=== PATIENT | male | born 1950 | race Caucasian/White ===

== ENCOUNTER 2016-12-25 16:46 | Inpatient (IN) | payer OTHER ==
[~2016-12-25] VITALS: Ht 170.2 cm; Wt 67.5 kg
[~2016-12-25 16:46] MED LIST: ACET-2158 PO; ALBU18HF IH; BUDE6HFA IH; COU1 PO; LOSA25TA5 PO
[2016-12-25] MEDS ORDERED: CLINDAMYCIN 900 MG/D5W (PMX) 50 ML IVPB STA (21:44)
[2016-12-25] MEDS ORDERED: APIX5TAB PO (21:56)
[2016-12-25] MEDS ORDERED: FURO20TA3 PO (21:57)
[2016-12-25] MEDS ORDERED: BUDE6HFA INHALATION (21:57)
[2016-12-25] MEDS ORDERED: FOLI-49 PO (21:58)
[2016-12-25] MEDS ORDERED: FENO145T19 PO (21:58)
[2016-12-25] MEDS ORDERED: HYDR-906 PO (21:59)
[2016-12-25] MEDS ORDERED: HYDR4TAB PO (21:59)
[2016-12-25] MEDS ORDERED: ALBU18HF INHALATION (22:00)
[2016-12-25 22:54] LABS: ADD SCAN DIFF NO
--- NOTE | 2016-12-25 22:54 | RADRPT ---
PROCEDURE: X-ray right foot CLINICAL INDICATION: Right foot infection. Reference marker is directed towards the medial base o f the right fifth toe TECHNIQUE: 3 views right foot COMPARISON: None FINDINGS: No acute fracture or dislocation. No plain film evidence of osteomyelitis. Soft tissues unremarkab le. IMPRESSION: No acute process identified. RPTAT: [facility] Physician Garret Date Time Electronically viewed and signed by Amarilys Pavon Physician on 12/25/2016 22:53 RS/
[2016-12-25 22:55] LABS: BASOPHIL # 0.1 10^3/ul (0.0-0.1); BASOPHILS % 0.8 % (0.0-2.0); EOSINOPHILS # 0.9 10^3/ul (0.0-0.5); EOSINOPHILS % 11.5 % (0.0-7.0); HEMOGLOBIN 14.5 g/dl (14.0-18.0); LYMPHOCYTES # 1.9 10^3/ul (0.8-2.9); LYMPHOCYTES % 24.5 % (15.0-51.0); MEAN CORPUSCULAR HEMOGLOBIN 33.4 pg (29.0-33.0); MEAN CORPUSCULAR HGB CONC 33.7 g/dl (32.0-37.0); MEAN CORPUSCULAR VOLUME 99.1 fl (82.0-101.0); MEAN PLATELET VOLUME 10.9 fl (7.4-10.4); MONOCYTE # 0.7 10^3/ul (0.3-0.9); MONOCYTES % 8.5 % (0.0-11.0); NEUTROPHIL # 4.1 10^3/ul (1.6-7.5); PLATELET COUNT 288 10^3/UL (140-415); RED BLOOD COUNT 4.34 10^6/ul (4.70-6.10); RED CELL DISTRIBUTION WIDTH 13.8 % (11.5-14.5); WHITE BLOOD COUNT 7.6 10^3/ul (4.8-10.8)
[2016-12-25] MEDS ORDERED: VANCOMYCIN 1 GM (PMX) 250 ML IVPB SCH (23:00)
[2016-12-25] MEDS ORDERED: DIPHENHYDRAMINE 50 MG INJ ONE (23:16)
[2016-12-25 23:20] LABS: CALCIUM 10.3 mg/dl (8.4-10.2); CREATININE 0.95 mg/dl (0.61-1.24); POTASSIUM 4.3 mmol/L (3.5-5.1)
[2016-12-25] MEDS ORDERED: DIPHENHYDRAMINE 50 MG INJ IV ONE (23:30)
[2016-12-25] MEDS ORDERED: ONDANSETRON 4 MG INJ IV PRN (23:30)
[2016-12-25] MEDS ORDERED: ACETAMINOPHEN 325 MG TAB PO PRN (23:30)
--- NOTE | 2016-12-25 23:44 | ERA ---
ER Documentation Chief Complaint Date/Time DATE: 12/25/16 TIME: 23:41 Chief Complaint RIGHT LEG POSSIBLE CELLULITIS, REDNESS NOTED, REPORTED CLOT A MOS AGO HPI 66-year-old diabetic male presenting with right foot infection. His symptoms started about 3 days ago. He was seen at an urgent care and placed on Keflex. He took about 5 doses of the Keflex when he developed a rash and itching. He was advised by the pharmacist to stop taking the medications. He did not notice any improvement of his symptoms. He went to his doctor today who sent him to the ER for evaluation. Denies any associated fevers or chills recently, however he had a low-grade fever 3 days ago of 100.2. Other than some pain in his foot, he has no other complaints. ROS All systems reviewed and are negative except as per history of present illness. Medications Home Meds Reported Medications Albuterol Sulfate* (Ventolin HFA*) 18 Gm Hfa.aer.ad, 2 PUFF INHALATION Q4H, #1 INHALER 12/25/16 Hydrocodone/Acetaminophen (Machipongo 5-325 Tablet) 1 Each Tablet, 1 EACH PO Q6H, TAB 12/25/16 Hydromorphone Hcl* (Hydromorphone Hcl*) 4 Mg Tablet, 4 MG PO TID Y for PAIN, TAB 12/25/16 Folic Acid* (Folic Acid*) 1 Mg Tablet, 1 MG PO DAILY, TAB 12/25/16 Fenofibrate Nanocrystallized* (Fenofibrate*) 145 Mg Tablet, 145 MG PO DAILY, TAB 12/25/16 Furosemide* (Furosemide*) 20 Mg Tablet, 20 MG PO DAILY, #60 TAB 12/25/16 Budesonide-Formoterol Fumarate* (Symbicort*) 160-4.5 Hfa.aer.ad, 2 PUFF INHALATION BID, #1 EACH 12/25/16 Apixaban* (Eliquis*) 5 Mg Tablet, 5 MG PO BID, TAB 12/25/16 Discontinued Reported Medications Warfarin Sod (Coumadin) 1 Mg Tablet, 1.5 MG PO DAILY, TAB 07/29/14 Albuterol Sulfate* (Ventolin HFA*) 18 Gm Hfa.aer.ad, 2 PUFF IH Q4H Y for WHEEZING AND RESP DISTRESS, EA 07/29/14 Losartan Potassium* (Losartan Potassium*) 25 Mg Tablet, 25 MG PO DAILY, TAB 07/29/14 Budesonide-Formoterol Fumarate* (Symbicort*) 160-4.5 Hfa.aer.ad, 2 PUFF IH BID, INH 04/30/14 Discontinued Scripts Acetaminophen (TYLENOL 325 MG TAB) 325 Mg Tab, 650 MG PO Q6H Y for PAIN LEVEL 1- 3 OR FEVER, #10 TAB Prov:ENRIQUE COOMBS MD 07/30/14 Allergies Allergies: Coded Allergies: cephalexin (Verified Allergy, Unknown, 12/25/16) PMhx/Soc History of Surgery: Yes (AAA surgery, rectal fistula repair, Rt and Lt inguinal repair) Anesthesia Reaction: No Hx Neurological Disorder: No Hx Respiratory Disorders: Yes (COPD, history of tracheostomy) Hx Cardiac Disorders: Yes (CP arrest x3, RLE DVT) Hx Psychiatric Problems: No Hx Miscellaneous Medical Probl: Yes (Scabies) Hx Alcohol Use: Yes Hx Substance Use: No Hx Tobacco Use: Yes Smoking Status: Current every day smoker FmHx Family History: No diabetes Physical Exam Vitals Vital Signs Date Time Temp Pulse Resp B/P Pulse Ox O2 Delivery O2 Flow Rate FiO2 12/25/16 16:49 98.1 100 18 110/65 99 Physical Exam Const: Well-appearing, no distress, nontoxic Head: Atraumatic Eyes: Normal Conjunctiva ENT: Normal External Ears, Nose and Mouth. Neck: Full range of motion..~ No meningismus. Resp: Clear to auscultation bilaterally Cardio: Regular rate and rhythm, no murmurs Abd: Soft, non tender, non distended. Normal bowel sounds Skin: No petechiae or rashes Back: No midline or flank tenderness Ext: No cyanosis, or edema. Right lower extremity with cellulitis extending from the foot up to the mid ho. There is blistering in between the third and fourth digits. No crepitus. 2+ DP and PT pulses Neur: Awake and alert Psych: Normal Mood and Affect Result Diagram: 12/25/16211412/25/162114 Results 24 hrs Laboratory Tests Test 12/25/16 21:15 White Blood Count 7.610^3/ul Red Blood Count 4.3410^6/ul Hemoglobin 14.5g/dl Hematocrit 43.0% Mean Corpuscular Volume 99.1fl Mean Corpuscular Hemoglobin 33.4pg Mean Corpuscular Hemoglobin Concent 33.7g/dl Red Cell Distribution Width 13.8% Platelet Count 68193^3/UL Mean Platelet Volume 10.9fl Neutrophils % 54.0% Lymphocytes % 24.5% Monocytes % 8.5% Eosinophils % 11.5% Basophils % 0.8% Nucleated Red Blood Cells % 0.0/100WBC Neutrophils # 4.110^3/ul Lymphocytes # 1.910^3/ul Monocytes # 0.710^3/ul Eosinophils # 0.910^3/ul Basophils # 0.110^3/ul Nucleated Red Blood Cells # 0.010^3/ul Sodium Level 140mmol/L Potassium Level 4.3mmol/L Chloride Level 102mmol/L Carbon Dioxide Level 26mmol/L Anion Gap 16 Blood Urea Nitrogen 16mg/dl Creatinine 0.95mg/dl Glucose Level 84mg/dl Calcium Level 10.3mg/dl Current Medications Medications (Trade) Dose Ordered Sig/Lucina Route PRN Reason Start Time Stop Time Status Last Admin Dose Admin Clindamycin HCl/ Dextrose 50 ml @ 50 mls/hr ONCE STAT IVPB 12/25/16 21:44 12/25/16 22:43 DC Vancomycin HCl (Vancocin) 250 ml @ 125 mls/hr ONCE IVPB 12/25/16 23:00 12/26/16 00:59 Ondansetron HCl (Zofran Inj) 4 mg BRIDGE ORDER PRN IV NAUSEA AND/OR VOMITING 12/25/16 23:30 12/26/16 23:29 Acetaminophen (Tylenol Tab) 650 mg ER BRIDGE PRN PO MILD PAIN/FEVER 12/25/16 23:30 12/26/16 23:29 Diphenhydramine HCl (Benadryl) 50 mg STK-MED ONCE .ROUTE 12/25/16 23:16 12/25/16 23:17 DC Diphenhydramine HCl (Benadryl) 25 mg ONCE ONCE IV 12/25/16 23:30 12/25/16 23:31 DC 12/25/16 23:25 Procedures/MDM Labs show no acute abnormality Right foot x-ray is normal Patient is presenting with a right foot cellulitis. He is afebrile and vitals are stable. Labs are drawn. IV clindamycin and vancomycin restarted. I do not suspect necrotizing skin infection at this time. However the patient is not stable for discharge as he is high risk due to his diabetes and will require IV antibiotics until there is some improvement. There is no evidence of sepsis at this time, so cultures were not ordered Accepting Care Team: Current data and ongoing care discussed. Time: Time of admission Primary Provider: Joao Consulting: none Outstanding Data: none Departure Diagnosis: Primary Impression: Diabetic infection of right foot Condition: ARCHIE Thapa MD Dec 25, 2016 23:44
[2016-12-26] MEDS ORDERED: DIPHENHYDRAMINE 50 MG INJ IV ONE (01:30)
[2016-12-26] MEDS ORDERED: SOD CHLORIDE 0.9% 1,000 ML IV ONE (01:30)
--- NOTE | 2016-12-26 01:58 | HP ---
Date/Time of Note Date/Time of Note DATE: 12/26/16 TIME: 01:58 Assessment/Plan VTE Prophylaxis VTE Prophylaxis Intervention: contraindicated Lines/Catheters IV [facility] Saline Lock Assessment/Plan Chief Complaint/Hosp Course Created in error Problems: HPI/ROS Admit Date/Time Admit Date/Time Hx of Present Illness PMH/Family/Social Social History Smoking Status: Current every day smoker Exam/Review of Systems Vital Signs Vitals Vital Signs Date Time Temp Pulse Resp B/P Pulse Ox O2 Delivery O2 Flow Rate FiO2 12/25/16 23:45 66 18 100/71 95 Room Air 12/25/16 16:49 98.1 Labs Result Diagram: 12/25/16211412/25/162114 Medications Medications Current Medications Sodium Chloride (NS) 1,000 ml @ 1,000 mls/hr Q1H ONCE IV Last administered on 12/26/16t 01:24; Admin Dose 1,000 MLS/HR; Start 12/26/16 at 01:30; Stop at 02:29 LIO LOO Dec 26, 2016 01:58 LIO LOO Dec 26, 2016 01:58
[2016-12-26] MEDS ORDERED: BISACODYL (EC) 5 MG TAB PO PRN (02:00)
[2016-12-26] MEDS: ALBUTEROL 18 GM INHALER INH SCH ×6 (02:00→21:37)
[2016-12-26] MEDS ORDERED: morphine 2 MG INJ IV PRN (02:00)
[2016-12-26] MEDS ORDERED: DOCUSATE SODIUM 100 MG CAP PO PRN (02:00)
[2016-12-26] MEDS ORDERED: NACL 0.9% 3 ML SYG IV SCH (02:00)
[2016-12-26] MEDS ORDERED: ONDANSETRON 4 MG INJ IV PRN (02:00)
[2016-12-26 02:30] VITALS: BP 112/67; RESP 17
[2016-12-26 03:01] VITALS: Ht 170.2 cm; Wt 67.5 kg
[2016-12-26] MEDS: FUROSEMIDE 20 MG TAB PO SCH (06:00)
[2016-12-26] MEDS ORDERED: PANTOPRAZOLE 40 MG INJ IV SCH (06:00)
--- NOTE | 2016-12-26 06:45 | HP ---
Date/Time of Note Date/Time of Note DATE: 12/26/16 TIME: 06:35 Assessment/Plan VTE Prophylaxis VTE Prophylaxis Intervention: LMWH Lines/Catheters [facility]from [facility]): Saline Lock Urinary Cath still in place: No Assessment/Plan Chief Complaint/Hosp Course This is a 66-year-old male being admitted to the [facility] floor for: #1 right lower extremity cellulitis: Patient failed outpatient therapy with Keflex. At the current time patient has cellulitis extending from the foot up to the midshin with some warmth redness and edema. With the current time will put patient on IV vancomycin pharmacy to dose. We will also consult wound care and podiatry as patient was appears to have skin lesion/blister/wound. X-ray was unremarkable for any evidence of osteomyelitis. #2 skin rash: Patient appears to have little petechial skin rash of the bilateral lower extremities. Patient states rash occurred after taking Keflex. This likely was a drug reaction. Will continue to monitor. #3 history of DVT: Continue Eliquis #4 COPD continue home inhaler #5 history of AAA repair: Stable continue to monitor #5 dyslipidemia: We will hold fibroids right now. #6 DVT and GI prophylaxis: Lovenox, Protonix. Treatment strategy will be implemented as per the clinical course Problems: HPI/ROS Admit Date/Time Admit Date/Time Hx of Present Illness Chief complaint: right foot infection 66-year-old diabetic male presenting with right foot infection. His symptoms started about 3 days ago. He was seen at an urgent care and placed on Keflex. He took about 5 doses of the Keflex when he developed a rash and itching. He was advised by the pharmacist to stop taking the medications. He did not notice any improvement of his symptoms. He went to his doctor today who sent him to the ER for evaluation. Denies any associated fevers or chills recently, however he had a low-grade fever 3 days ago of 100.2. Other than some pain in his foot, he has no other complaints Medications: See MAR Allergies: Cephalexin ROS Cons: As per HPI Eyes : No pain discharge or redness or change in visual acuity ENT: No pain, sore throat, congestion, congestion, dysphagia or discharge Respiratory: No shortness of breath, cough, sputum, wheezing, or pleuritic pain Cardiovascular: No chest pain, palpitation, PND, or edema GI : no change in appetite, abdominal pain, nausea, vomiting, diarrhea, constipation, or change in the color his stool Genitourinary: No dysuria, hematuria, flank pain , discharge or CVA tenderness Musculoskeletal: As per HPI Skin: As per HPI Neuro: No headache, dizziness, syncope, seizure, focal weakness Endocrine: No polyuria, polydipsia, temperature intolerance Psych: No hallucination, depression, anxiety or suicidal ideation PMH/Family/Social Past Medical History DVT, abdominal aortic aneurysm, COPD, chronic pink otitis Past Surgical History Bilateral inguinal hernia surgery, rectal fistula repair, left wrist surgery, AAA repair Family History Significant Family History: diabetes (Mom) Social History Alcohol Use: other (Last drink 1 month ago social drinker) Smoking Status: Former smoker (2 packs per day 40 years, quit 5 years ago) Exam/Review of Systems Vital Signs Vitals Vital Signs Date Time Temp Pulse Resp B/P Pulse Ox O2 Delivery O2 Flow Rate FiO2 12/26/16 02:30 98.1 62 17 112/67 94 12/26/16 01:57 Room Air Intake and Output 12/25/16 12/25/16 12/26/16 15:00 23:00 07:00 Intake Total 250 ml Output Total 300 ml Balance -50 ml Exam Exam General: Patient is well-developed well-nourished The patient is alert oriented -3 lying comfortably in bed. HEENT: Atraumatic, normocephalic. The pupils are equal, round and reactive. Extraocular motor are intact Neck: Supple with full range of motion. No rigidity or meningismus Chest: Nontender Lungs: Clear to auscultation bilaterally no crackles rales or wheezing Heart: Normal S1-S2, Regular rhythm and rate. No murmur, S3, or S4 Abdomen: Soft , nontender, nondistended , bowel sounds are present. No guarding no rebound tenderness , No masses or organomegaly. No costovertebral temporal angle mass Extremities: Right lower extremity redness warmth and erythema from the foot up to the ho, edema of the right lower extremity 1+, 2+ DP pulses Neurologic: Normal mental status, speech normal, cranial nerves II through XII are intact, motor and sensory are intact, no focal weakness Skin: Right lower extremity erythema redness and warmth extending from the foot all the left position, blisters/open wound of the third and fourth digit. Lines of demarcation drawn with marker Additional Comments PROCEDURE: X-ray right foot CLINICAL INDICATION: Right foot infection. Reference marker is directed towards the medial base of the right fifth toe TECHNIQUE: 3 views right foot COMPARISON: None FINDINGS: No acute fracture or dislocation. No plain film evidence of osteomyelitis. Soft tissues unremarkable. IMPRESSION: No acute process identified. RPTAT: UU Physician Garret Date Time Electronically viewed and signed by Amarilys Pavon Physician on 12/25/2016 22:53 Labs Result Diagram: 12/25/16211412/25/162114 Medications Medications Current Medications Ondansetron HCl (Zofran Inj) 4 mg Q6H PRN IV NAUSEA AND/OR VOMITING; Start at 02:00 Morphine Sulfate (morphine) 2 mg Q4H PRN IV SEVERE PAIN LEVEL 7-10; Start 12/26 at 02:00 Docusate Sodium (Colace) 100 mg Q12H PRN PO CONSTIPATION; Start 12/26/16 at 02: 00 Bisacodyl (Dulcolax) 5 mg DAILY PRN PO CONSTIPATION; Start 12/26/16 at 02:00 Pantoprazole (Protonix Iv) 40 mg DAILY@06 IV Last administered on 12/26/16t 06: 32; Admin Dose 40 MG; Start 12/26/16 at 06:00 Enoxaparin Sodium (Lovenox) 40 mg DAILY SC ; Start 12/26/16 at 09:00 Apixaban (Eliquis) 5 mg BID PO ; Start 12/26/16 at 09:00 Folic Acid (Folic Acid) 1 mg DAILY PO ; Start 12/26/16 at 09:00 Furosemide (Lasix) 20 mg DAILY@06 PO ; Start 12/26/16 at 06:00 Miscellaneous Information 2 puff BID INHALATION ; Start 12/26/16 at 09:00; Status LIO JOSEPH Dec 26, 2016 06:45
[2016-12-26] MEDS ORDERED: VANCOMYCIN IV PER PHARMACY XX SCH (07:00)
[2016-12-26] MEDS ORDERED: SOD CHLORIDE 0.9% 500 ML IV ONE (07:00)
[2016-12-26 07:47] VITALS: BP 104/64; RESP 18
[2016-12-26] MEDS ORDERED: ENOXAPARIN 40 MG/0.4 ML SYG SC SCH (09:00)
[2016-12-26] MEDS: SALMETEROL/FLUTICASONE 250/50 INHA INH SCH ×2 (09:48→21:37)
[2016-12-26] MEDS: FOLIC ACID 1 MG TAB PO SCH (09:49)
[2016-12-26] MEDS: VANCOMYCIN 750 MG in SOD CHLORIDE 0.9% 150 ML IVPB SCH ×2 (09:49→21:38)
[2016-12-26] MEDS: APIXABAN 5 MG TABLET PO SCH ×2 (09:49→21:44)
[2016-12-26 11:45] VITALS: RESP 20
[2016-12-26 12:04] VITALS: PULSE 100; RESP 21
[2016-12-26] MEDS: DIPHENHYDRAMINE 25 MG CAP PO PRN ×2 (13:21→22:00)
[2016-12-26] MEDS: FENOFIBRATE 145 MG TAB PO SCH (13:22)
[2016-12-26] MEDS: PREGABALIN 25 MG CAP PO SCH ×2 (13:22→21:38)
--- NOTE | 2016-12-26 18:00 | CONS ---
DATE OF ADMISSION: 12/25/2016 DATE OF CONSULTATION: 12/26/2016 TYPE OF CONSULTATION: Infectious Disease. REASON FOR CONSULTATION: Antibiotic management. HISTORY OF PRESENT ILLNESS: David Kaba is a 66-year-old male with a history of diabetes who c omes in with right foot infection. His past problems include: 1. Adult-onset diabetes mellitus. 2. History of skin rash. 3. History of deep venous thrombosis on Eliquis. 4. Chronic obstructive pulmonary disease on home inhalers. 5. Status post aortic abdominal aneurysm repair. 6. Dyslipidemia. 7. Right foot infection. As noted, the patient has a right foot infection which started 3 days sandra or to admission. He was given Keflex. He developed a rash and some itching and was advised to stop taking the medication. He went to his doctor and his temperature was 100.2. He came to the emerge ncy room for evaluation. PAST SURGICAL HISTORY: As outlined. He also has bilateral inguinal hernia surgery, surgery for rec ela fistula, left wrist surgery as well as the AAA repair. PAST MEDICAL HISTORY: As outlined. FAMILY HISTORY: Noncontributory. Mother had diabetes. SOCIAL HISTORY: He is a social drinker. He is a former smoker, 2 packs per day for 40 years, quit 5 years ago. PHYSICAL EXAMINATION: GENERAL: The patient is a well-developed, well-nourished male. Alert, responsive, in no acute dist ress. VITAL SIGNS: Stable. He is afebrile. SKIN: Without generalized rash. HEENT: Within normal limits. NECK: Supple. LYMPH NODES: None palpable. CHEST: Decreased breath sounds at the bases. HEART: Without murmur or gallop. ABDOMEN: Soft, nontender, without organosplenomegaly or masses. EXTREMITIES: Without cyanosis or clubbing or edema. The right lower extremity has redness and warm th and erythema from the foot up to the anterior tibial area. His right lower extremity is edematou s. He has good pulses. RECTAL AND GENITAL: Deferred. NEUROLOGIC: No focal neurological abnormalities. ANCILLARY LABORATORY DATA: X-ray of the foot shows right foot shows no acute fractures or dislocati ons. No evidence of osteomyelitis. On admission, his white count is 7.6, H and H 14.5 and 43, plat elet count 288,000. BUN and creatinine 16/0.95, glucose random was 84. Patient was placed on vanco mycin. He had a dose of clindamycin as well. We will continue him on vancomycin for his cellulitis and I will dictate my findings to the hospitalist. Dictated By: JESICA SMALL MD, JD/JUAN DIEGO Conf#: [id number] DID#: [id number]
[2016-12-26] MEDS ORDERED: METHYLPREDNISOLONE 40 MG INJ IV ONE (20:00)
[2016-12-26 21:25] VITALS: BP 90/53; RESP 18
--- NOTE | 2016-12-26 21:25 | CONS ---
DATE OF ADMISSION: 12/25/2016 DATE OF CONSULTATION: 12/26/2016 REASON FOR CONSULTATION: Right foot cellulitis. REFERRING PHYSICIAN: Dr. Jalen Shepherd HISTORY OF PRESENT ILLNESS: This is a 66-year-old gentleman with admission through the emergency room for cellulitis, failed outpatient treatment, had been seen at an urgent care facility and prescribed Keflex. The patient has had increasing swelling, ascending erythema and skin rash since admission. The patient relates an ALLERGY TO CEPHALEXIN. He has had Benadryl and itching persists. Currently on vancomycin and clindamycin. PAST MEDICAL HISTORY: History of DVT, had been on Coumadin, currently on Eliquis for anticoagulation therapy. Abdominal aortic aneurysm, COPD, PAST SURGICAL HISTORY: Bilateral inguinal hernia surgery, rectal fistula repair , left wrist surgery, AAA repair. FAMILY HISTORY: Diabetes in his mother. SOCIAL HISTORY: Social alcohol. Former smoker, 2 packs per day for 40 years, quit 5 years ago. PHYSICAL EXAMINATION: VITAL SIGNS: Temperature 98.7, respiratory 18, blood pressure 104/64. Pulse oximetry 97, room air. GENERAL: The patient alert, oriented. Mild distress from itching. Regular respiration. NECK: Trachea is midline. EXTREMITIES: Multiple petechiae in bilateral lower extremity, legs, thigh. Has erythema to hand. Right foot with pain with palpation, has sanguineous blisters located at the 3rd interspace over the 4th and the 3rd toes. Sensitivity with light touch and unable to flex, extend the toes, has moderate edema of foot and ankle. There are indelible pen markings with receding erythema. No osseous or ligamentous instability of leg, ankle, hindfoot or midfoot. The patient has a 2+ DP, PT pulses, 2+ popliteal pulse. Tinea interdigital between the 3rd and 4th toes. No evidence of puncture or foreign body. IMAGING: X-rays, right foot, 3 views without evidence of fracture, dislocation. No osteomyelitis. LABORATORIES: WBC 7.6, hemoglobin 14.5, hematocrit 43, platelets 288. Sodium 140, potassium 4.3, chloride 102, CO2 26, BUN 16, creatinine 0.95, glucose 84. ASSESSMENT: 1. Right foot, ankle and calf cellulitis. 2. Tinea. 3. Hematoma, right foot 3rd and 4th toes. 4. Cirrhosis. PLAN: The patient seen, evaluated, discussed radiographs. The patient consented for incision and drainage procedure performed at bedside. The toe was cleansed, and using an 11 blade, incision was made of the hematoma to the 4th toe and serosanguineous drainage obtained for culture, to be sent for aerobic, anaerobic cultures. There is macerated tissue between the toes. The patient initiated on Diflucan. Appreciate ID recommendations. The patient currently on empiric therapy with clindamycin and vancomycin. Nursing recommendations given. Daily cleansing with chlorhexidine and application of gentamicin cream. Recommend elevation of extremity, application of ice as needed. Also patient has appearance of some allergy, either from infection or from medication and not relieved with Benadryl. Solu-Medrol 40 mg initiated. Will continue to follow while in-house. Thank you for this consultation. Dictated By: XAVIER CHIU/JUAN DIEGO Conf#: [id number] DID#: [id number] MTDD
[2016-12-26] MEDS: GENTAMICIN 0.1% CREAM 15GM TUBE TOP SCH (21:38)
[2016-12-26] MEDS: FLUOCINONIDE 0.05% 15 GM CR TOP SCH (21:43)
[2016-12-27] MEDS ORDERED: ZOLPIDEM 5 MG TAB PO PRN
[2016-12-27] MEDS: PANTOPRAZOLE (EC) 40 MG TAB PO SCH (05:38)
[2016-12-27] MEDS: FUROSEMIDE 20 MG TAB PO SCH (05:39)
[2016-12-27 05:41] VITALS: BP 106/67; PULSE 61
[2016-12-27 08:00] VITALS: BP 106/64; RESP 19
[2016-12-27 08:28] LABS: ADD SCAN DIFF NO
[2016-12-27 08:36] LABS: BASOPHILS % 0.1 % (0.0-2.0); LYMPHOCYTES # 1.3 10^3/ul (0.8-2.9); LYMPHOCYTES % 17.8 % (15.0-51.0); MEAN CORPUSCULAR HEMOGLOBIN 32.6 pg (29.0-33.0); MEAN CORPUSCULAR HGB CONC 32.6 g/dl (32.0-37.0); MEAN PLATELET VOLUME 10.3 fl (7.4-10.4); MONOCYTE # 0.2 10^3/ul (0.3-0.9); MONOCYTES % 2.6 % (0.0-11.0); NEUTROPHIL # 5.8 10^3/ul (1.6-7.5); NEUTROPHILS % 79.1 % (39.0-77.0); PLATELET COUNT 311 10^3/UL (140-415); RED CELL DISTRIBUTION WIDTH 13.8 % (11.5-14.5); WHITE BLOOD COUNT 7.3 10^3/ul (4.8-10.8)
[2016-12-27] MEDS: ASCORBIC ACID 500 MG TAB PO SCH (08:46)
[2016-12-27] MEDS: FLUCONAZOLE 200 MG TAB PO SCH (08:46)
[2016-12-27] MEDS: PREGABALIN 25 MG CAP PO SCH ×2 (08:46→20:47)
[2016-12-27] MEDS: APIXABAN 5 MG TABLET PO SCH ×2 (08:46→20:47)
[2016-12-27] MEDS: ZINC SULFATE 220 MG CAP PO SCH (08:46)
[2016-12-27] MEDS: FOLIC ACID 1 MG TAB PO SCH (08:46)
[2016-12-27] MEDS: GENTAMICIN 0.1% CREAM 15GM TUBE TOP SCH ×3 (08:47→20:46)
[2016-12-27] MEDS: SALMETEROL/FLUTICASONE 250/50 INHA INH SCH ×2 (08:47→20:43)
[2016-12-27] MEDS: FLUOCINONIDE 0.05% 15 GM CR TOP SCH ×3 (08:47→20:45)
[2016-12-27] MEDS: FENOFIBRATE 145 MG TAB PO SCH (08:47)
[2016-12-27] MEDS: ALBUTEROL 18 GM INHALER INH PRN ×2 (09:01→20:45)
[2016-12-27 09:15] LABS: ALBUMIN 4.4 g/dl (3.3-4.9); ALBUMIN/GLOBULIN RATIO 1.62; BILIRUBIN,INDIRECT 0.1 mg/dl (0-1.1); BILIRUBIN,TOTAL 0.1 mg/dl (0.2-1.3); CALCIUM 9.5 mg/dl (8.4-10.2); CHOL/HDL RATIO 6.3 RATIO; POTASSIUM 4.7 mmol/L (3.5-5.1); TOTAL PROTEIN 7.1 g/dl (6.1-8.1)
[2016-12-27] MEDS: VANCOMYCIN 750 MG in SOD CHLORIDE 0.9% 150 ML IVPB SCH ×2 (09:58→20:49)
--- NOTE | 2016-12-27 12:53 | PN ---
DATE: 12/27/2016 SUBJECTIVE: Chart reviewed. Events noted. The patient is status post incision and drainage at the bedside. PHYSICAL EXAMINATION: VITAL SIGNS: Blood pressure 106/64, pulse 64, respirations 19, temperature 97.7, saturating 94%. HEENT: Pupils are equal and reactive to light. Anicteric sclerae. NECK: Supple. No JVD noted, no cervical adenopathy, no carotid bruits heard. LUNGS: Fair breath sounds bilaterally. CARDIOVASCULAR: S1, S2 normal. ABDOMEN: Soft, nontender. No organomegaly or masses noted. EXTREMITIES: Right 4th toe is status post incision and drainage. Also, erythema in the lower extrem ity petechia noted. NEUROLOGIC: Awake and alert. LABORATORY: WBC 7.3, hemoglobin 14, hematocrit 43, platelets 311. Sodium 140, potassium 4.7, chlor meseret 108, CO2 25, BUN 19, creatinine 1, glucose 146. IMPRESSION: 1. Right lower extremity cellulitis. 2. Right foot toe hematoma, status post incision and drainage. 3. Chronic obstructive pulmonary disease. 4. History of abdominal aorta aneurysm repair. 5. Dyslipidemia. 6. Skin rash. RECOMMENDATIONS: 1. Continue antibiotics per ID recommendations. 2. Continue wound care. 3. Above discussed with nursing staff. Dictated By: STERLING REYES MD, MA/JUAN DIEGO Conf#: [id number] DID#: [id number]
[2016-12-27] MEDS: DIPHENHYDRAMINE 25 MG CAP PO PRN ×2 (13:25→22:56)
[2016-12-27 20:10] VITALS: BP 106/66; RESP 20
--- NOTE | 2016-12-27 21:31 | PN ---
DATE: 12/27/2016 SUBJECTIVE: No acute changes. The patient is alert, looks comfortable, no fevers. LABORATORY DATA: WBC 7.3, neutrophils 79.1. BUN 19, creatinine 1.0. MICROBIOLOGY: Pending wound cultures. ANTIMICROBIALS: 1. Fluconazole. 2. Vancomycin. PHYSICAL EXAMINATION: GENERAL: This is a well-nourished, well-developed elderly man who is awake, in no distress. HEENT: Head atraumatic, normocephalic. Sclerae anicteric. Buccal mucosa pink. NECK: Supple. CHEST: Rise symmetrical. Breath sounds clear. HEART: S1, S2. ABDOMEN: Soft, bowel tones present. EXTREMITIES: With right foot dressing intact. ASSESSMENT: 1. Right foot cellulitis, status post incision and drainage at bedside. 2. Systemic inflammatory response syndrome. 3. Diabetes. 4. Chronic obstructive pulmonary disease. 5. History of aortic abdominal aneurysm repair. PLAN: The patient remains stable. We will continue him on current antimicrobials, await for wound cultures, and follow podiatry recommendations. Dictated By: ANISH CLARKE SUPERVISOR GRADING for JESICA SMALL MD NI/JUAN DIEGO Conf#: [id number] DID#: [id number] CC: LIO LOO MD;*EndCC*
[2016-12-27] MEDS ORDERED: ZOLPIDEM 5 MG TAB PO ONE (23:00)
[2016-12-28] MEDS: FUROSEMIDE 20 MG TAB PO SCH (05:57)
[2016-12-28] MEDS: PANTOPRAZOLE (EC) 40 MG TAB PO SCH (05:57)
[2016-12-28 08:45] VITALS: BP 109/70; RESP 17
[2016-12-28] MEDS: PREGABALIN 25 MG CAP PO SCH (09:10)
[2016-12-28] MEDS: ZINC SULFATE 220 MG CAP PO SCH (09:10)
[2016-12-28] MEDS: DIPHENHYDRAMINE 25 MG CAP PO PRN (09:10)
[2016-12-28] MEDS: VANCOMYCIN 750 MG in SOD CHLORIDE 0.9% 150 ML IVPB SCH (09:10)
[2016-12-28] MEDS: FLUCONAZOLE 200 MG TAB PO SCH (09:10)
[2016-12-28] MEDS: ASCORBIC ACID 500 MG TAB PO SCH (09:11)
[2016-12-28] MEDS: ALBUTEROL 18 GM INHALER INH PRN (09:11)
[2016-12-28] MEDS: APIXABAN 5 MG TABLET PO SCH (09:11)
[2016-12-28] MEDS: SALMETEROL/FLUTICASONE 250/50 INHA INH SCH (09:11)
[2016-12-28] MEDS: FENOFIBRATE 145 MG TAB PO SCH (09:11)
[2016-12-28] MEDS: FOLIC ACID 1 MG TAB PO SCH (09:11)
[2016-12-28] MEDS: GENTAMICIN 0.1% CREAM 15GM TUBE TOP SCH ×2 (09:12→14:02)
[2016-12-28] MEDS: FLUOCINONIDE 0.05% 15 GM CR TOP SCH ×2 (09:12→14:02)
--- NOTE | 2016-12-28 10:41 | PN ---
Date/Time of Note Date/Time of Note DATE: 12/28/16 TIME: 10:37 Assessment/Plan VTE Prophylaxis VTE Prophylaxis Intervention: other (Eliquis) Lines/Catheters IV [facility] Urinary Cath still in place: No Assessment/Plan Chief Complaint/Hosp Course A/P: 66-year-old male [facility] for: #1 right lower extremity cellulitis: Patient failed outpatient therapy with Keflex. At the current time patient has cellulitis extending from the foot up to the midshin with some warmth redness and edema. S/P I+D by podiatry team. X -ray was unremarkable for any evidence of osteomyelitis. - continue IV vancomycin pharmacy to dose. - f/u wound care and podiatry rec's, f/u final wound cx. #2 skin rash: Patient appears to have little petechial skin rash of the bilateral lower extremities. Patient states stools occurred after taking Keflex. This likely was a drug reaction. Will continue to monitor. #3 history of DVT: Continue Eliquis #4 COPD continue home inhaler #5 history of AAA repair: Stable continue to monitor #5 dyslipidemia: We will hold fibroids right now. #6 DVT and GI prophylaxis: Eliquis, Protonix. Treatment strategy will be implemented as per the clinical course Problems: Subjective 24 Hr Interval Summary Free Text/Dictation Pt had no acute events overnight, seen by ID team yesterday. Exam/Review of Systems Vital Signs Vitals Vital Signs Date Time Temp Pulse Resp B/P Pulse Ox O2 Delivery O2 Flow Rate FiO2 12/28/16 08:45 97.5 56 17 109/70 91 12/26/16 01:57 Room Air Intake and Output 12/27/16 12/27/16 12/28/16 15:00 23:00 07:00 Intake Total 150 ml 1410 ml 700 ml Output Total 1080 ml 600 ml Balance 150 ml 330 ml 100 ml Exam HEENT: Pupils are equal and reactive to light. Anicteric sclerae. NECK: Supple. No JVD noted, no cervical adenopathy, no carotid bruits heard. LUNGS: Fair breath sounds bilaterally. CARDIOVASCULAR: S1, S2 normal. ABDOMEN: Soft, nontender. No organomegaly or masses noted. EXTREMITIES: Right 4th toe is status post incision and drainage. Also, erythema in the lower extremity petechia noted. NEUROLOGIC: Awake and alert. Results Result Diagram: 12/27/1680512/27/16805 Medications Medications Current Medications Ondansetron HCl (Zofran Inj) 4 mg Q6H PRN IV NAUSEA AND/OR VOMITING; Start at 02:00 Morphine Sulfate (morphine) 2 mg Q4H PRN IV SEVERE PAIN LEVEL 7-10; Start 12/26 at 02:00 Docusate Sodium (Colace) 100 mg Q12H PRN PO CONSTIPATION Last administered on 22:56; Admin Dose 100 MG; Start 12/26/16 at 02:00 Bisacodyl (Dulcolax) 5 mg DAILY PRN PO CONSTIPATION; Start 12/26/16 at 02:00 Apixaban (Eliquis) 5 mg BID PO Last administered on 12/28/16 09:11; Admin Dose 5 MG; Start 12/26/16 at 09:00 Folic Acid (Folic Acid) 1 mg DAILY PO Last administered on 12/28/16 09:11; Admin Dose 1 MG; Start 12/26/16 at 09:00 Furosemide (Lasix) 20 mg DAILY@06 PO Last administered on 12/28/16 05:57; Admin Dose 20 MG; Start 12/26/16 at 06:00 Salmeterol Xinafoate/ Fluticasone 1 inh 1 inh BID INH Last administered on 12/28 09:11; Admin Dose 1 INH; Start 12/26/16 at 09:00 Vancomycin HCl/ Sodium Chloride (Vancocin/NS) 150 ml @ 75 mls/hr Q12 IVPB Last administered on 12/28/16 09:10; Admin Dose 75 MLS/HR; Start 12/26/16 at 09 :00 Fenofibrate (Tricor) 145 mg DAILY PO Last administered on 12/28/16 09:11; Admin Dose 145 MG; Start 12/26/16 at 10:30 Diphenhydramine HCl (Benadryl) 25 mg Q6H PRN PO ITCHING Last administered on 09:10; Admin Dose 25 MG; Start 12/26/16 at 10:30 Pregabalin (Lyrica) 25 mg BID PO Last administered on 12/28/16 09:10; Admin Dose 25 MG; Start 12/26/16 at 12:00 Pantoprazole (Protonix Tab) 40 mg DAILY@06 PO Last administered on 12/28/16 05 :57; Admin Dose 40 MG; Start 12/27/16 at 06:00 Fluconazole (Diflucan) 200 mg DAILY PO Last administered on 12/28/16 09:10; Admin Dose 200 MG; Start 12/27/16 at 09:00 Gentamicin Sulfate (Gentamicin 0.1% Cr) 1 applic TID TOP Last administered on 09:12; Admin Dose 1 APPLIC; Start 12/26/16 at 21:00 Ascorbic Acid (Vitamin C) 1,000 mg DAILY PO Last administered on 12/28/16 09: 11; Admin Dose 1,000 MG; Start 12/27/16 at 09:00 Zinc Sulfate (Zinc Sulfate) 220 mg DAILY PO Last administered on 12/28/16 09: 10; Admin Dose 220 MG; Start 12/27/16 at 09:00 Fluocinonide (Lidex 0.05% Cr) 1 applic TID TOP Last administered on 12/28/16 09:12; Admin Dose 1 APPLIC; Start 12/26/16 at 21:00 KENNETH RAMIRES Dec 28, 2016 10:41
--- NOTE | 2016-12-28 12:21 | PDOCDIS ---
Discharge Instructions CONDITION Patient Condition: Stable HOME CARE INSTRUCTIONS: Special Diet: CCD ACTIVITY: Activity Restrictions: Slowly Increase Activity FOLLOW UP/APPOINTMENTS Appointments Please take your medications as prescribed, see your doctor in the clinic in 1 week. KENNETH RAMIRES Dec 28, 2016 12:21
[2016-12-28] MEDS ORDERED: SULF1TAB31 PO (12:23)
[2016-12-28] MEDS ORDERED: GENT15CR TOP (12:24)
--- NOTE | 2016-12-28 12:59 | DS ---
DATE OF ADMISSION: 12/27/2016 DATE OF DISCHARGE: 12/28/2016 HOSPITAL COURSE: A 66-year-old male originally admitted on 12/26/2016, being discharged home on . The patient came in with right lower extremity cellulitis. He was admitted to medical/true gical floor, placed on antibiotics, seen by infectious disease team and podiatry team. He underwent incision and drainage as there was a hematoma in the right foot between the third and fourth toes, and he was placed on antibiotics for the cellulitis. His symptoms improved. His cellulitis improve d. He was placed on IV antibiotics and gentamicin cream. He was able to ambulate and tolerate a p. o. diet. After getting clearance from the ID team, he is going to be discharged home today in impro rush condition. DISCHARGE MEDICATIONS: He will be sent with the following medications: 1. Bactrim double strength 1 tab p.o. b.i.d. for 7 more days. 2. Gentamicin topically applied t.i.d. for 5 days. 3. Eliquis 5 mg b.i.d. 4. Ventolin HFA 2 puffs inhaled q.4h. 5. Fenofibrate 145 mg daily. 6. Folic acid 1 mg daily. 7. Lasix 20 mg p.o. daily. 8. [place] 5/325 q.6h. p.r.n. 9. Dilaudid 4 mg p.o. t.i.d. p.r.n. FOLLOWUP: He will need to follow up with primary care doctor in the clinic in the next 1 to 2 weeks . FINAL DIAGNOSES: 1. Right lower extremity cellulitis, improved with antibiotics. 2. Right foot between third and fourth toe hematoma, status post incision and drainage. 3. History of chronic obstructive pulmonary disease. 4. History of abdominal aortic aneurysm repair. 5. High cholesterol. 6. History of deep venous thrombosis, on Eliquis. Time spent discharging patient 40 minutes. Dictated By: KENNETH PINEDA Conf#: [id number] DID#: [id number]
--- NOTE | 2016-12-28 21:56 | CONS ---
Date/Time of Note Date/Time of Note DATE: 12/28/16 TIME: 21:55 Assessment/Plan Assessment/Plan Chief Complaint/Hosp Course SUBJECTIVE: No acute changes. The patient is alert, wants to go home no fevers. MICROBIOLOGY: Wound culture + Staph ANTIMICROBIALS: 1. Fluconazole. 2. Vancomycin. PHYSICAL EXAMINATION: GENERAL: This is a well-nourished, well-developed elderly man who is awake, in no distress. HEENT: Head atraumatic, normocephalic. Sclerae anicteric. Buccal mucosa pink. NECK: Supple. CHEST: Rise symmetrical. Breath sounds clear. HEART: S1, S2. ABDOMEN: Soft, bowel tones present. EXTREMITIES: With right foot dressing intact. ASSESSMENT: 1. Right foot cellulitis, status post incision and drainage at bedside. 2. Systemic inflammatory response syndrome. 3. Diabetes. 4. Chronic obstructive pulmonary disease. 5. History of aortic abdominal aneurysm repair. PLAN: The patient remains stable. Ok dc on oral Bactrim, f/u with podiatry [facility] staff Problems: Consultation Date/Type/Reason Admit Date/Time Dec 27, 2016 at 12:27 Initial Consult Date Type of Consultation: ID Exam/Review of Systems Vital Signs Vitals Vital Signs Date Time Temp Pulse Resp B/P Pulse Ox O2 Delivery O2 Flow Rate FiO2 12/28/16 08:45 97.5 56 17 109/70 91 12/26/16 01:57 Room Air Intake and Output 12/27/16 12/27/16 12/28/16 14:59 22:59 06:59 Intake Total 150 ml 1410 ml 700 ml Output Total 1080 ml 600 ml Balance 150 ml 330 ml 100 ml Results Result Diagram: 12/27/16 0806 12/27/16 0806 ANISH CLARKE NP Dec 28, 2016 21:56
== END 2016-12-28 14:32 | disposition home or self-care (01) | DRG 603 ==
LOC: E/R 16:46 → PP2 23:08 → OBSVTOIN 12-27 12:27
PROVIDERS: ADMIT Family Medicine; ATTEND Family Medicine
PROC: 0H9MXZZ Drainage of Right Foot Skin, External Approach (ICD-10-PCS; principal; 2016-12-26)
DX: L03.115 Cellulitis of right lower limb (principal); K74.60 Unspecified cirrhosis of liver; R65.10 Systemic inflammatory response syndrome (SIRS) of non-infectious origin without acute organ dysfunction; J44.9 Chronic obstructive pulmonary disease, unspecified; E11.9 Type 2 diabetes mellitus without complications; B35.9 Dermatophytosis, unspecified; E78.5 Hyperlipidemia, unspecified; Z86.718 Personal history of other venous thrombosis and embolism; Z79.02 Long term (current) use of antithrombotics/antiplatelets; L27.1 Localized skin eruption due to drugs and medicaments taken internally; T36.1X5A Adverse effect of cephalosporins and other beta-lactam antibiotics, initial encounter; Y92.239 Unspecified place in hospital as the place of occurrence of the external cause; Z87.891 Personal history of nicotine dependence; S90.121A Contusion of right lesser toe(s) without damage to nail, initial encounter
CPT/HCPCS: 36415; 73630; 80048; 80053; 80061; 80202; 83036; 85025; 87070; 87075; 96374; 96375; 96376; G0378; C9113; J1200; J2405; J2920; J3370; J7030; J7040